=== PATIENT | male | born 1950 | race Two or more races ===

== ENCOUNTER 2024-12-16 09:42 | Emergency (ER) | payer MEDICARE, MEDICAID ==
[~2024-12-16] VITALS: Ht 167.6 cm; Wt 70.0 kg
--- NOTE | 2024-12-16 10:00 | ECG ---
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
[2024-12-16] MEDS: SODIUM CHLORIDE 0.9% 1,000 ML IV ONE ×2 (10:30→12:40)
--- NOTE | 2024-12-16 10:47 | ED.PDOC ---
History of Present Illness HPI Comments 74-year-old male BIBA with daughter by bedside and with prior medical history of diabetes, hypertension, chronic leg pain, chronic back pain: Surgical history of cholecystectomy and a chief complaint of dizziness. EMS Report on the patient having weakness associated with dizziness, nausea, and chest pain 0200 this morning. EMS stated that the patient had a blood sugar of 164 on scene. Daughter reports that the patient has a had similar symptoms in the past. Patient notes on not having any chest pain at the moment. Denies any other symptoms at this time. Denies chills, fever, N/V/D, SOB. No other associated symptoms, modifiers, recent injuries or sick contacts present at this time. Chief Complaint: Left Sided Weakness Time Seen by MD: 10:45 Reviewed Notes: Nurses Notes, Medications, Allergies Allergies: Coded Allergies: NO KNOWN ALLERGIES (Unverified , 12/16/24) Information Source: Patient, Relative (Child), Emergency Med Personnel Mode of Arrival: EMS Severity: Moderate Timing: Hours Duration: Since onset, Hours Prehospital treatment: None Past Medical History PAST MEDICAL HISTORY: DM, HTN Past Medical History (Other): Chronic leg pain, chronic back pain Surgical History: Cholecystectomy Family History Family History: Reviewed,noncontributory to illness, Unknown Social History Smoker: Non-Smoker Alcohol: Denies ETOH Use Drugs: Denies Drug Use Lives In: Home Constitutional: reports: weakness; denies: chills, diaphoresis, fatigue, fever, malaise, sweats, others EENTM: denies: blurred vision, double vision, ear bleeding, ear discharge, ear drainage, ear pain, ear ringing, eye pain, eye redness, hearing loss, mouth pain, mouth swelling, nasal discharge, nose bleeding, nose congestion, nose pain, photophobia, tearing, throat pain, throat swelling, voice changes, others Respiratory: denies: cough, hemoptysis, orthopnea, SOB at rest, shortness of breath, SOB with excertion, stridor, wheezing, others Cardiovascular: reports: chest pain; denies: dizzy spells, diaphoresis, Dyspnea on exertion, edema, irregular heart beat, left arm pain, lightheadedness, palpitations, PND, syncope, others Gastrointestinal: reports: nausea; denies: abdomen distended, abdominal pain, blood streaked bowels, constipated, diarrhea, dysphagia, difficulty swallowing, hematemesis, melena, poor appetite, poor fluid intake, rectal bleeding, rectal pain, vomiting, others Genitourinary: denies: burning, dysuria, flank pain, frequency, hematuria, incontinence, penile discharge, penile sore, pain, testicle pain, testicle swelling, urgency, others Neurological: reports: dizziness; denies: fainting, headache, left sided numbness, left sided weakness, numbness, paresthesia, pre-existing deficit, right sided numbness, right sided weakness, seizure, speech problems, tingling, tremors, weakness, others Musculoskeletal: denies: back pain, gout, joint pain, joint swelling, muscle pain, muscle stiffness, neck pain, others Integumetry: denies: bruises, change in color, change in hair/nails, dryness, laceration, lesions, lumps, rash, wounds, others Allergic/Immunocompromised: denies: Difficulty Healing, Frequent Infections, Hives, Itching, others Hematologic/Lymphatic: denies: anemia, blood clots, easy bleeding, easy bruising, swollen glands, others Endocrine: denies: excessive hunger, excessive sweating, excessive thirst, excessive urination, flushing, intolerance to cold, intolerance to heat, unexplained weight gain, unexplained weight loss, others Psychiatric: denies: anxiety, bipolar disorder, depression, hopeless, panic disorder, schizophrenia, sleepless, suicidal, others All Other Systems: Reviewed and Negative Physical Exam General Appearance: Moderate Distress, Normal HEENT: Normal ENT Inspection, Pharynx Normal, TMs Normal Neck: Full Range of Motion, Non-Tender, Normal, Normal Inspection Respiratory: Chest Non-Tender, Lungs Clear, No Accessory Muscle Use, No Respiratory Distress, Normal Breath Sounds Cardiovascular: No Edema, No JVD, No Murmur, No Gallop, Normal Peripheral Pulses, Regular Rate/Rhythm Breast Exam: Deferred Gastrointestinal: No Organomegaly, Non Tender, No Pulsatile Mass, Normal Bowel Sounds, Soft Genitalia: Deferred Pelvic: Deferred Rectal: Deferred Extremities: No calf tenderness, Normal capillary refill, Normal inspection, Normal range of motion, Non-tender, No pedal edema Musculoskeletal : Apperance: Normal Neurologic: Alert, customer specialist II-XII nml as Tested, No Motor Deficits, Normal Affect, Normal Mood, No Sensory Deficits Cerebellar Function: NOT DONE Reflexes: NOT DONE Skin: Dry, Normal Color, Warm Peripheral Pulses: 3+ Radial (R), 3+ Radial (L) Lymphatic: No Adenopathy Was a procedure done? Was a procedure done?: No EKG EKG : Pulse Rate (adult): 71 [place]: Normal Cardiac Rhythm: NSR Block: None Hypertrophy: None ST: Normal Differential Dx Considerations may include: Anemia Electrolyte imbalance X-Ray, Labs, Meds, VS Vital Signs Date Time Temp Pulse Resp B/P (MAP) Pulse Ox O2 Delivery O2 Flow Rate FiO2 12/16/24 10:47 71 12/16/24 09:52 97.6 72 16 139/77 95 97.6 12/16/24 09:46 71 Patient alert. Generalized weakness. Vitals stable. Answering questions. No leg swelling. Patient comfortable. Unable to get a clear-cut picture on how he is feeling. Daughter at bedside. Possible TIA. Possibly will need MRI. EKG reviewed does not show any acute changes. Explained to the family. Continue monitoring. Time of 1ST Reevaluation: 11:15 Reevaluation 1ST: Unchanged Patient Education/Counseling: Diagnosis, Treatment, Prognosis Family Education/Counseling: No Family Present SEPSIS Sepsis Screen Date sepsis recognized/suspect: Dec 16, 2024 Time Sepsis recognized/suspect: 947 Recent Procedure: No On Antibiotic Therapy: No Respiratory Rate >20: No Heart Rate >90: No Temp<36 C (96.8 F) or >38.3 C: No SBP <90 or MAP <65 mmHG: No New Acute Mental Status Change: No Is the patient on CPAP, BIPAP,: No Physician Orders Troponin-I Hs (12/16/24 10:22) Complete Blood Count (12/16/24 10:22) Comprehensive Metabolic Panel (12/16/24 10:22) Chest Portable (12/16/24 10:22) Urinalysis (12/16/24 10:22) Sodium Chloride 0.9% (12/16/24 10:30) Sodium Chloride 0.9% (12/16/24 10:30) Head Without Contrast (12/16/24 10:22) Vital Signs Date Time Temp Pulse Resp B/P (MAP) Pulse Ox O2 Delivery O2 Flow Rate FiO2 12/16/24 10:47 71 12/16/24 09:52 97.6 72 16 139/77 95 97.6 12/16/24 09:46 71 Departure 1 Departure Time of Disposition: 10:55 Impression: Primary Impression: TIA (transient ischemic attack) Additional Impression: Generalized weakness Disposition: ADMITTED INPATIENT Admit to: Med Surg Condition: Guarded Critical Care Note Critical Care Time?: No Stability Stability form required: No Heart Score Heart Score: Heart Score Response (Comments) Value History Slightly Suspicious 0 EKG Normal 0 Age >65 2 Risk Factors >3 or Hx ASHD 2 Troponin Normal limit 0 Total 4 I personally scribed for MARCIA QUIROZ MD ([email or web address]) on 12/16/24 at 10:47. Electronically submitted by Carlin Black ([email or web address]). MARCIA QUIROZ MD Dec 16, 2024 10:47
--- NOTE | 2024-12-16 10:59 | DVH ---
EXAM: CT HEAD WITHOUT CONTRAST INDICATION: tia TECHNIQUE: CT of the head without intravenous contrast. Radiation Dose : 1. Head: CT Dose: CTDI volume is 62.16 mGy. Dose-length product is 1224.84 mGy*cm The dose indicators for CT are the volume Computed Tomography (CT) Dose Index (CTDIvol) and the Dose Length Product (DLP), and are measured in units of mGy and mGy-cm, respectively. These indicators are not patient dose, but values generated from the CT scanner acquisition factors. The report includes radiation exposure data for exposures received during this examination. COMPARISON: None FINDINGS: There is no evidence of acute intracranial hemorrhage, extra-axial collection, mass effect, midline s hift, herniation or hydrocephalus. The ventricles, sulci and cisterns are age appropriate. The puentes-white differentiation is intact. Patchy periventricular and subcortical white matter hypoattenuation is nonspecific but may be related to small vessel ischemic disease. Severe mucosal opacification of the paranasal sinuses. The surrounding soft tissues and osseous structures are unremarkable. IMPRESSION: No acute intracranial abnormality. Severe paranasal sinus disease; possibly sinusitis. Radiation optimization: All CT scans at this facility use at least one of these dose optimization hema hniques: automated exposure control mA and/or kV adjustment per patient size (includes targeted exam s where dose is matched to clinical indication) or iterative reconstruction.
--- NOTE | 2024-12-16 11:01 | DVH ---
INDICATION: sob TECHNIQUE: Frontal view of the chest. COMPARISON: None FINDINGS: . The heart and mediastinal contours are grossly unremarkable. There is no evidence of pleural disea se. The lungs are clear. The bony structures of the chest are intact without fracture. IMPRESSION: 1. No evidence of acute disease.
[2024-12-16 11:08] LABS: Hematocrit 52.4 % (41.0-53.0); Hemoglobin 17.9 g/dL (13.5-17.5); Mean Corpuscular Hemoglobin 30.3 pg (28.0-32.0); Mean Corpuscular Volume 88.7 fL (80.0-100.0); Nucleated Red Blood Cells % 0.7 %
[2024-12-16 11:27] LABS: Alanine Aminotransferase 31 U/L (7-40); Albumin 4.5 g/dL (3.2-4.8); Alkaline Phosphatase 102 U/L (46-116); Anion Gap 9 (5-15); BUN/Creatinine Ratio 7.9 (10.0-20.0); Bilirubin, Total 0.9 mg/dL (0.2-1.0); Blood Urea Nitrogen 11 mg/dL (9-23); Calcium 9.9 mg/dL (8.7-10.4); Carbon Dioxide 28 mmol/L (20-31); Chloride 100 mmol/L (98-107); Sodium 137 mmol/L (136-145)
[2024-12-16 11:28] LABS: Glucose 155 mg/dL (74-106); Potassium 5.4 mmol/L (3.5-5.1); Total Protein 8.4 g/dL (5.7-8.2)
[2024-12-16 11:30] VITALS: PULSE 72; RESP 13; O2SAT 96
[2024-12-16 12:44] LABS: Urine Protein, UAD Negative (Negative)
[2024-12-16 15:38] VITALS: TEMP 98.4
[2024-12-16 18:27] VITALS: BP 126/67; PULSE 92; RESP 17; O2SAT 95
== END 2024-12-16 20:35 | disposition left against medical advice (07) ==
LOC: ER 09:42 → EDBD 09:42 → ER 20:35
DX: G45.9 Transient cerebral ischemic attack, unspecified (principal); R53.1 Weakness; E11.9 Type 2 diabetes mellitus without complications; I10 Essential (primary) hypertension; G89.29 Other chronic pain; Z90.49 Acquired absence of other specified parts of digestive tract
CPT/HCPCS: 36415; 70450; 71045; 80053; 81001; 82947; 84484; 85025; 93005; 96360; 96361; 99285; J7030